=== PATIENT | male | born 1935 ===

== ENCOUNTER 2018-02-23 16:34 | Outpatient (REF) | payer MEDICARE, OTHER, SELFPAY ==
[2018-02-23 19:40] LABS: HCT 37.7 % (40.0-50.0); HGB 11.8 g/dL (13.5-17.5); Mean Corp. HGB Concentration 31.3 g/dL (32.0-36.0); Mean Corpuscular Hemoglobin 31.5 pg (27.0-33.0); Mean Corpuscular Volume 100.5 fL (80-95); Mean Platelet Volume 11.8 fL (8.0-11.0); Platelet Count 115 x1000/uL (130-400); RBC 3.75 m/cumm (4.50-6.00); White Blood Cell Count 5.53 k/cumm (4.4-10.8)
[2018-02-23 20:53] LABS: Anion Gap 10.7 mmol/L (3-11); BUN 26 mg/dL (7-18); CO2 28.3 mmol/L (21.0-32.0); CREATININE 0.93 mg/dL (0.70-1.30); Calcium 8.8 mg/dL (8.5-10.1); Chloride 106 mmol/L (98-107); Glucose 84 mg/dL (70-100); Potassium 4.7 mmol/L (3.5-5.1); Sodium 145 mmol/L (136-145)
== END 2018-02-23 16:54 ==
LOC: NCHCN 16:34
PROVIDERS: PCP Internal Medicine; Visit Provider Internal Medicine
DX: I48.2 Chronic atrial fibrillation (principal); I51.7 Cardiomegaly; J44.9 Chronic obstructive pulmonary disease, unspecified
CPT/HCPCS: 80048; 85027

== ENCOUNTER 2019-02-02 18:49 | Outpatient (REF) | payer MEDICARE, OTHER, SELFPAY ==
[2019-02-02 20:17] LABS: HCT 40.5 % (40.0-50.0); HGB 12.6 g/dL (13.5-17.5); Mean Corp. HGB Concentration 31.1 g/dL (32.0-36.0); Mean Corpuscular Hemoglobin 30.7 pg (27.0-33.0); Mean Corpuscular Volume 98.8 fL (80-95); Mean Platelet Volume 11.6 fL (8.0-11.0); Platelet Count 113 x1000/uL (130-400); RBC Distribution Width 14.3 % (11.8-14.1); White Blood Cell Count 6.24 k/cumm (4.4-10.8)
[2019-02-02 20:44] LABS: Albumin 3.7 g/dL (3.4-5.0); Anion Gap 6.5 mmol/L (3-11); BUN 23 mg/dL (7-18); CO2 31.5 mmol/L (21.0-32.0); CREATININE 1.02 mg/dL (0.70-1.30); Calcium 8.6 mg/dL (8.5-10.1); Chloride 106 mmol/L (98-107); Ferritin 141 ng/mL (8-388); Glucose 98 mg/dL (70-100); Potassium 4.1 mmol/L (3.5-5.1); Sodium 144 mmol/L (136-145)
[2019-02-02 21:02] LABS: PHOSPHORUS 3.4 mg/dL (2.6-4.7)
== END 2019-02-02 19:09 ==
LOC: NCHCN 18:49
PROVIDERS: PCP Internal Medicine; Visit Provider Internal Medicine
DX: D64.9 Anemia, unspecified (principal); I48.20 Chronic atrial fibrillation, unspecified; J44.9 Chronic obstructive pulmonary disease, unspecified; E66.9 Obesity, unspecified
CPT/HCPCS: 80069; 85027; 82728

== ENCOUNTER 2019-08-29 22:09 | Outpatient (REF) | payer MEDICARE, OTHER, SELFPAY ==
[2019-08-29 20:25] LABS: Abs Immature Grans 0.01 k/cumm (0.0-0.09); Absolute Basophil Count 0.02 k/cumm (0.0-0.2); Absolute Lymphocyte Count 0.54 k/cumm (1.2-3.4); Absolute Monocyte Count 0.57 k/cumm (0.11-0.7); Absolute Neutrophil Count 4.23 k/cumm (1.2-6.7); Basophils % 0.4; Eosinophils % 3.6; HCT 35.7 % (40.0-50.0); HGB 11.4 g/dL (13.5-17.5); Immature Grans % 0.2 %; Lymphocytes % 9.7; Mean Corp. HGB Concentration 31.9 g/dL (32.0-36.0); Mean Corpuscular Hemoglobin 32.5 pg (27.0-33.0); Mean Corpuscular Volume 101.7 fL (80-95); Mean Platelet Volume 11.8 fL (8.0-11.0); Monocytes % 10.2; Neutrophils % 75.9; Platelet Count 107 x1000/uL (130-400); RBC 3.51 m/cumm (4.50-6.00); RBC Distribution Width 14.6 % (11.8-14.1); White Blood Cell Count 5.57 k/cumm (4.4-10.8)
[2019-08-29 20:58] LABS: Iron 62 ug/dL (65-175); Total Iron Binding Capacity 259 ug/dL (250-450); Transferrin Sat 24 % (20-55)
[2019-08-29 21:17] LABS: ALT 30 U/L (16-63); AST 27 U/L (15-37); Albumin 3.7 g/dL (3.4-5.0); Alkaline Phosphatase 156 U/L (46-116); Anion Gap 6.6 mmol/L (3-11); BUN 24 mg/dL (7-18); Bilirubin, Total 1.9 mg/dL (0.2-1.0); CO2 32.4 mmol/L (21.0-32.0); CREATININE 1.03 mg/dL (0.70-1.30); Calcium 8.6 mg/dL (8.5-10.1); Chloride 105 mmol/L (98-107); Ferritin 317 ng/mL (26-388); Glucose 108 mg/dL (74-106); Potassium 3.9 mmol/L (3.5-5.1); Sodium 144 mmol/L (136-145); Total Protein 6.9 g/dL (6.4-8.2)
== END 2019-08-29 22:29 ==
LOC: NCHCN 22:09
PROVIDERS: PCP Internal Medicine; Visit Provider Physician Assistant
DX: D64.9 Anemia, unspecified (principal); I48.20 Chronic atrial fibrillation, unspecified
CPT/HCPCS: 80053; 82728; 83540; 83550; 85025

== ENCOUNTER 2019-09-19 12:39 | Outpatient (REF) | payer MEDICARE, OTHER, SELFPAY ==
[2019-09-19 20:41] LABS: Anion Gap 5.8 mmol/L (3-11); BUN 25 mg/dL (7-18); CO2 34.2 mmol/L (21.0-32.0); CREATININE 1.12 mg/dL (0.70-1.30); Calcium 8.8 mg/dL (8.5-10.1); Chloride 101 mmol/L (98-107); Glucose 99 mg/dL (74-106); NT-proBNP 1862 pg/mL (<300); Sodium 141 mmol/L (136-145)
== END 2019-09-19 12:59 ==
LOC: NCHCN 12:39
PROVIDERS: PCP Internal Medicine; Visit Provider Physician Assistant
DX: I50.30 Unspecified diastolic (congestive) heart failure (principal)
CPT/HCPCS: 80048; 83880